=== PATIENT | male | born 1985 | race Caucasian/White ===

== ENCOUNTER 2025-01-08 13:20 | Emergency (ER) | payer BC ==
[~2025-01-08] VITALS: Ht 177.8 cm; Wt 104.0 kg
[2025-01-08 13:26] VITALS: TEMP 36.8; O2SAT 98
[2025-01-08 15:19] LABS: BASOPHILS % 0.7 % (0.0-2.0); EOSINOPHILS % 0.8 % (0.0-5.0); HEMATOCRIT. 45.8 % (42.0-52.0); HEMOGLOBIN. 14.7 g/dL (14.0-18.0); LYMPHOCYTES % 29.6 % (20.0-50.0); MEAN PLATELET VOLUME 8.4 fl (7.4-10.4); MONOCYTES % 9.2 % (2.0-8.0); NEUTROPHILS % 59.7 % (40.0-76.0); PLATELET 263 x1000/uL (130-400); RED BLOOD CELL COUNT 4.98 mill/uL (4.7-6.1); RED CELL DISTRIBUTION WIDTH 13.4 % (11.6-14.6)
[2025-01-08 15:34] LABS: CREATININE 1.1 mg/dL (0.6-1.3)
[2025-01-08 15:35] LABS: TROPONIN I HIGH SENSITIVITY < 4 ng/L (3.0-53); UREA NITROGEN BLOOD 11 mg/dL (9-23)
[2025-01-08 15:36] LABS: ASPARTATE AMINOTRANSFERASE 19 IU/L (<34)
[2025-01-08 15:37] LABS: BILIRUBIN TOTAL 0.4 mg/dL (0.1-1.0); PROTEIN TOTAL 7.1 g/dL (6.0-8.3)
[2025-01-08 16:17] VITALS: BP 149/92; PULSE 62; RESP 16; O2SAT 98
== END 2025-01-08 16:19 | disposition home or self-care (01) ==
LOC: ER 13:20
DX: R07.89 Other chest pain (principal)
CPT/HCPCS: 36415; 71045; 80053; 84484; 85025; 93005; 99285